=== PATIENT | female | born 1980 | race Caucasian/White ===

== ENCOUNTER 2018-02-27 22:25 | Emergency (ER) | payer SELFPAY ==
[2018-02-27] MEDS ORDERED: ASPIRIN 81 MG TABLET, CHEWABLE PO ONE (22:56)
--- NOTE | 2018-02-27 22:57 | ER Document Report ---
ED Medical Screen (RME) - General Chief Complaint: Chest Pain Stated Complaint: SHORTNESS OF BREATH Time Seen by Provider: 02/27/18 22:56 Notes: Patient is a 37-year-old female presents emergency department with a chief complaint of chest pain, shortness of breath for the past 6-7 months. Patient does not have a primary care doctor that she follows with. She has been told once before that this was heartburn. She describes her pain as a pressure that is not exertional with sharp stabbing qualities. She denies any past medical history significant for diabetes, hypertension, hyperlipidemia, PE or DVT. Patient is a current tobacco user and has a Mirena in place for control. TRAVEL OUTSIDE OF THE [place] IN LAST 30 DAYS: No - Related Data Allergies/Adverse Reactions: Penicillins Allergy (Verified 02/27/18 22:29) Physical Exam - Vital signs Vitals: Temp Pulse Resp BP Pulse Ox 97.9 F 108 H 20 151/108 H 94 02/27/18 22:40 02/27/18 22:40 02/27/18 22:40 02/27/18 22:40 02/27/18 22:40 - Notes Notes: PHYSICAL EXAM GENERAL: Alert, interacts well. HEAD: Normocephalic, atraumatic. NECK: Full range of motion. Supple. Trachea midline. LUNGS: Clear to auscultation bilaterally, no wheezes, rales, or rhonchi. No respiratory distress. HEART: Regular rate and rhythm. No murmurs, gallops, or rubs. NEUROLOGICAL: Alert and oriented x4. Normal speech. PSYCH: Normal affect, normal mood. SKIN: Warm, dry, normal turgor. No rashes or lesions noted. Course - Vital Signs Vital signs: Temp Pulse Resp BP Pulse Ox 97.9 F 108 H 20 151/108 H 94 02/27/18 22:40 02/27/18 22:40 02/27/18 22:40 02/27/18 22:40 02/27/18 22:40
[2018-02-27 23:27] LABS: ABSOLUTE BASOPHILS # (AUTO) 0.2 10^3/uL (0.0-0.2); ABSOLUTE EOSINOPHILS # (AUTO) 0.3 10^3/uL (0.0-0.6); ABSOLUTE LYMPHOCYTES (AUTO) 3.7 10^3/uL (0.5-4.7); ABSOLUTE MONOCYTES (AUTO) 0.7 10^3/uL (0.1-1.4); EOSINOPHILS % (AUTO) 3.5 % (0-6); HEMATOCRIT 42.2 % (36.0-47.0); HEMOGLOBIN 14.8 g/dL (12.0-15.5); LYMPHOCYTES % (AUTO) 41.8 % (13-45); MEAN CORPUSCULAR HEMOGLOBIN 35.9 pg (27.0-33.4); MEAN CORPUSCULAR VOLUME 103 fl (80-97); MONOCYTES % (AUTO) 7.7 % (3-13); PLATELET COUNT 202 10^3/uL (150-450); RED BLOOD COUNT 4.12 10^6/uL (3.72-5.28); TOTAL CELLS COUNTED % (AUTO) 100 %; WHITE BLOOD COUNT 8.9 10^3/uL (4.0-10.5)
[2018-02-27 23:42] LABS: ALANINE AMINOTRANSFERASE 167 U/L (9-52); ALBUMIN 4.9 g/dL (3.5-5.0); ALKALINE PHOSPHATASE 93 U/L (38-126); ANION GAP 18 (5-19); ASPARTATE AMINO TRANSFERASE 200 U/L (14-36); BILIRUBIN,DIRECT 0.5 mg/dL (0.0-0.4); BILIRUBIN,TOTAL 0.6 mg/dL (0.2-1.3); BLOOD UREA NITROGEN 6 mg/dL (7-20); CALCIUM 9.5 mg/dL (8.4-10.2); CARBON DIOXIDE 29 mmol/L (22-30); CHLORIDE 104 mmol/L (98-107); CREATINE KINASE 93 U/L (30-135); GLUCOSE 124 mg/dL (75-110); POTASSIUM 3.5 mmol/L (3.6-5.0); TOTAL PROTEIN 8.7 g/dL (6.3-8.2)
[2018-02-27 23:53] LABS: TROPONIN I < 0.012 ng/mL
--- NOTE | 2018-02-28 03:43 | RADIOLOGY REPORT (SQ) ---
EXAM DESCRIPTION: CT ABD/PELVIS WITH IV ONLY CLINICAL HISTORY: 37 years Female, abdominal pain with vomiting, elevated LFT's COMPARISON: None. TECHNIQUE: IV contrast. Coronal and sagittal reformat. This exam was performed according to our departmental dose-optimization program, which includes automated exposure control, adjustment of the mA and/or kV according to patient size and/or use of iterative reconstruction technique. FINDINGS: Moderate diffuse bowel wall thickening of the left and sigmoid colon and discontinuous mild bowel wall thickening of the mid and distal transverse colon. Prominence of the distal ileal bowel wall. No evidence of appendicitis; appendix not definitively discerned. Adequate appearing IUD. Inferior thorax, liver, gallbladder, pancreas, spleen, adrenals, renal system, gastrointestinal tract, pelvic organs, lymphatics, vasculature, and musculoskeleton appear otherwise unremarkable. IMPRESSION: Moderate colitis pattern.
--- NOTE | 2018-02-28 04:00 | ER Document Report ---
ED General - General Chief Complaint: Chest Pain Stated Complaint: SHORTNESS OF BREATH Time Seen by Provider: 02/27/18 22:56 Notes: Patient is a 37-year-old female who presents emergency department with chief complaint of chest pain, vomiting for the past 6-7 months. Patient describes the pain as a sharp stabbing pain that is fleeting. She states it is not associated with any specific movements, exertion. She denies any associated cough. Admits to intermittent shortness of breath. States that these symptoms usually resolve on their own. She admits to vomiting on a regular basis for the past 6-7 months as well. She states it is normally when she wakes up in the morning and after certain meals. She denies any significant abdominal pain , change in her bowel movements. Patient does not follow with a primary care provider. Patient is a current tobacco user. Admits to approximately 4-8 drinks per week. TRAVEL OUTSIDE OF THE [place] IN LAST 30 DAYS: No - Related Data Allergies/Adverse Reactions: Penicillins Allergy (Verified 02/27/18 22:29) Past Medical History - Social History Smoking Status: Never Smoker Chew tobacco use (# tins/day): No Drug Abuse: None Family History: Reviewed & Not Pertinent Patient has suicidal ideation: No Patient has homicidal ideation: No Renal/ Medical History: Denies: Hx Peritoneal Dialysis Review of Systems - Review of Systems Notes: REVIEW OF SYSTEMS: CONSTITUTIONAL : Denies fever, chills, or sweats. Denies recent illness. EENT: Denies eye, ear, throat, or mouth pain or symptoms. Denies nasal or sinus congestion or discharge. Denies throat, tongue, or mouth swelling or difficulty swallowing. CARDIOVASCULAR: Admits to chest pain, intermittent palpitations or racing or irregular heart beat. Denies ankle edema. RESPIRATORY: Denies cough, cold, or chest congestion. Denies shortness of breath, difficulty breathing, or wheezing. GASTROINTESTINAL: Admits to vomiting without significant nausea. Denies abdominal pain or distention. Denies blood in vomitus, stools, or per rectum. Denies black, tarry stools. Denies constipation. GENITOURINARY: Denies difficulty urinating, painful urination, burning, frequency, blood in urine, or discharge. MUSCULOSKELETAL: Denies any muscle spasms, difficulty walking, extremity pain SKIN: Denies rash, lesions or sores. HEMATOLOGIC : Denies easy bruising or bleeding. LYMPHATIC: Denies swollen, enlarged glands. NEUROLOGICAL: Denies confusion or altered mental status. Denies passing out or loss of consciousness. Denies dizziness or lightheadedness. Denies headache. Denies weakness or paralysis or loss of use of either side. Denies problems with gait or speech. Denies sensory loss, numbness, or tingling. Denies seizures. PSYCHIATRIC: Denies anxiety or stress. Denies depression, suicidal ideation, or homicidal ideation. ALL OTHER SYSTEMS REVIEWED AND NEGATIVE. Dictation was performed using [employer] voice recognition software Physical Exam - Vital signs Vitals: Temp Pulse Resp BP Pulse Ox 97.9 F 108 H 20 151/108 H 94 02/27/18 22:40 02/27/18 22:40 02/27/18 22:40 02/27/18 22:40 02/27/18 22:40 - Notes Notes: PHYSICAL EXAM GENERAL: Alert, interacts well. HEAD: Normocephalic, atraumatic. EYES: Pupils equal, round, and reactive to light. Extraocular movements intact. ENT: Oral mucosa moist, tongue midline. NECK: Full range of motion. Supple. Trachea midline. LUNGS: Clear to auscultation bilaterally, no wheezes, rales, or rhonchi. No respiratory distress. HEART: Regular rate and rhythm. No murmurs, gallops, or rubs. ABDOMEN: Soft, nondistended, nontender. No guarding, rebound, or rigidity.. Bowel sounds present in all 4 quadrants. EXTREMITIES: Moves all 4 extremities spontaneously. No edema, radial and dorsalis pedis pulses 2/4 bilaterally. No cyanosis. NEUROLOGICAL: Alert and oriented x4. Normal speech. PSYCH: Normal affect, normal mood. SKIN: Warm, dry, normal turgor. No rashes or lesions noted. Course - Re-evaluation Re-evalutation: 02/28/18 03:58 Patient is a 37-year-old female presents emergency department with a chief complaint of unspecified chest pain and vomiting. CBC stable without evidence of leukocytosis or anemia. Chemistry is evidence of elevated ALT and AST without evidence of elevation in bilirubins. Lipase also mildly elevated at 300s. CT abdomen and pelvis was ordered given painless elevation in LFTs and lipase without any evidence of acute abdominal process. Regarding her chest pain, low clinical suspicion for ACS given clinical history, exam, EKG without ST elevations or depressions, and negative initial troponin. HEART score less than or equal to 3. PE also seems unlikely given clinical history, absence of tachycardia or dyspnea. Well's score of 0. CXR without evidence of pneumothorax or pneumonia. No widened mediastinum. Aortic dissection also seems unlikely given history, symmetric pulses, CXR, and vitals. At this time will discharge with return precautions and follow-up recommendations. Verbal discharge instructions given a the bedside and opportunity for questions given. Medication warnings reviewed. Patient is in agreement with this plan and has verbalized understanding of return precautions and the need for primary care follow-up in the next 24-72 hours. - Vital Signs Vital signs: Temp Pulse Resp BP Pulse Ox 97.9 F 108 H 21 H 146/105 H 100 02/27/18 22:40 02/27/18 22:40 02/28/18 04:00 02/28/18 03:31 02/28/18 04:00 - Laboratory Result Diagrams: 02/27/18 23:00 02/27/18 23:00 Laboratory results interpreted by me: 02/27/18 02/27/18 02/27/18 23:00 23:00 23:00 MCV 103 H MCH 35.9 H Sodium 151.0 H Potassium 3.5 L BUN 6 L Glucose 124 H Direct Bilirubin 0.5 H AST 200 H ALT 167 H Total Protein 8.7 H Lipase 354.7 H - Diagnostic Test Radiology reviewed: Image reviewed, Reports reviewed - EKG Interpretation by Me EKG shows normal: Sinus rhythm Rate: Normal Rhythm: NSR When compared to previous EKG there are: Previous EKG unavailable Discharge - Discharge Clinical Impression: Chest pain Qualifiers: Chest pain type: unspecified Qualified Code(s): R07.9 - Chest pain, unspecified Vomiting Qualifiers: Vomiting type: unspecified Condition: Good Disposition: HOME, SELF-CARE Instructions: Liver Function Abnormality ([facility]) Additional Instructions: Please follow up with the land economist for elevated liver function tests CHEST PAIN OF UNCLEAR CAUSE: The exact cause of your chest pain isn't clear. Fortunately, there is no evidence of a dangerous medical condition. Further testing may be required to find the source of the pain. Most often, we find that this pain is coming from the chest wall -- the muscles or rib joints in the chest. But chest pain can come from the lung and lung lining, the esophagus, the heart valves or heart lining, and even the stomach or gallbladder. Rest. Eat lightly until the pain is gone. We may prescribe medicine for pain and inflammation. You should call the physician immediately if the pain radiates to the shoulder, jaw or arms; if you start to run a fever or develop a cough; or if you develop shortness of breath, or other new or alarming symptoms. NORMAL EXAM AND WORKUP: At this time, your examination and workup show no significant abnormality. No significant abnormal physical findings were noted. All laboratory, EKG, and imaging (x-ray, CT scans, ultrasound) studies that were ordered show no significant abnormality. Although your examination and all studies that were ordered showed no significant abnormal finding, there are no examinations and no studies that are 100% accurate. There is always the possibility that some abnormality could exist and not be detected with physical examination or within the limits and capabilities of laboratory and other studies. You should return or follow up as you were instructed on your visit today for further evaluation if your symptoms do not resolve. FOLLOW-UP CARE: If you have been referred to a physician for follow-up care, call the physician s office for an appointment as you were instructed or within the next two days. If you experience worsening or a significant change in your symptoms, notify the physician immediately or return to the Emergency Department at any time for re-evaluation. Referrals: BHARGAVI GARNETT MD [ACTIVE STAFF] - Follow up as needed ANUPAM CAMACHO MD [ACTIVE STAFF] - Follow up in 1 week
[2018-02-28 04:02] VITALS: BP 146/105
--- NOTE | 2018-02-28 04:44 | RADIOLOGY REPORT (SQ) ---
EXAM DESCRIPTION: CHEST SINGLE VIEW CLINICAL HISTORY: 37 years Female, chest pain, SOB for months COMPARISON: None. NUMBER OF VIEWS/TECHNIQUE: 1/AP FINDINGS: Adequate lung volume, clear parenchyma, normal cardiac silhouette, and intact bony thorax. IMPRESSION: No acute cardiopulmonary findings.
--- NOTE | 2018-02-28 07:51 | EKG REPORT ---
SEVERITY:- BORDERLINE ECG - SINUS TACHYCARDIA NONSPECIFIC ST-T CHANGES- INFERIOR LEADS : Confirmed by: Chau Dickinson MD 28-Feb-2018 07:50:31
[2018-03-01 08:42] LABS: HEPATITIS A AB IGM Negative (Negative); HEPATITIS B CORE AB IGM Negative (Negative); HEPATITS B SURFACE ANTIGEN Negative (Negative)
[2018-03-01 08:49] LABS: HEPATITIS C VIRUS ANTIBODY <0.1 s/co ratio (0.0-0.9)
== END 2018-02-28 04:26 | disposition home or self-care (01) ==
LOC: ER 22:25
DX: R07.9 Chest pain, unspecified (principal); R11.11 Vomiting without nausea; R06.02 Shortness of breath; R74.0 Nonspecific elevation of levels of transaminase and lactic acid dehydrogenase [LDH]; R74.8 Abnormal levels of other serum enzymes; Z72.0 Tobacco use
CPT/HCPCS: 36415; 71045; 74177; 80053; 80074; 82550; 82553; 83690; 84484; 85025; 85379; 93005; 93010; 99285

== ENCOUNTER 2019-08-15 07:16 | Emergency (ER) | payer SELFPAY ==
[2019-08-15] MEDS ORDERED: IBUPROFEN 800 MG TABLET PO ONE (08:23)
--- NOTE | 2019-08-15 08:28 | ER Document Report ---
ED General - General Chief Complaint: Headache Stated Complaint: HEADACHE,THROAT SWELLING Time Seen by Provider: 08/15/19 08:11 Mode of Arrival: Ambulatory Information source: Patient Notes: This 39-year-old female with history of seizures presents emergency department with complaints of headache for the past 3 to 4 days right ear clogged the past 3 days and sore throat that started yesterday. Reports it hurts to swallow feels like her throat is swollen. Denies fever vomiting diarrhea. Patient reports she has had anaphylactic reaction to penicillin so she knows how it feels where throat is closing and it feels like when her throat is closing. She does admit that she is eating drinking without problems. Patient reports she is taking Goody powders without relief of symptoms. TRAVEL OUTSIDE OF THE [place] IN LAST 30 DAYS: No - Related Data Allergies/Adverse Reactions: Penicillins Allergy (Verified 08/15/19 07:40) Past Medical History - General Information source: Patient Last Menstrual Period: IUD - Social History Smoking Status: Current Every Day Smoker Cigarette use (# per day): Yes Chew tobacco use (# tins/day): No Frequency of alcohol use: Occasional Drug Abuse: None Family History: Reviewed & Not Pertinent Patient has suicidal ideation: No Patient has homicidal ideation: No Neurological Medical History: Reports: Hx Seizures Renal/ Medical History: Denies: Hx Peritoneal Dialysis Past Surgical History: Reports: Hx Gynecologic Surgery Review of Systems - Review of Systems Notes: Review HPI for review of systems., All other systems negative Physical Exam - Vital signs Vitals: Temp Pulse Resp BP Pulse Ox 97.4 F 85 18 162/96 H 99 08/15/19 07:32 08/15/19 07:32 08/15/19 07:32 08/15/19 07:32 08/15/19 07:32 - General General appearance: Appears well, Alert In distress: None - HEENT Head: Normocephalic, Atraumatic Eyes: Normal Conjunctiva: Normal Pupils: PERRL Ears: Normal External canal: Cerumen impaction Pharynx: Normal, Erythema - Good airway clear voice opens mouth wide no trismus. No: Peritonsillar abscess, Retropharyngeal abscess, Tonsillar hypertrophy, Uvular edema, Potential airway comprom. Neck: Normal, Supple. No: Lymphadenopathy - Respiratory Respiratory status: No respiratory distress Chest status: Nontender Breath sounds: Normal Chest palpation: Normal - Cardiovascular Rhythm: Regular Heart sounds: Normal auscultation Murmur: No - Abdominal Inspection: Normal Distension: No distension Bowel sounds: Normal Tenderness: Nontender - Extremities General upper extremity: Normal ROM, Normal strength General lower extremity: Normal ROM, Normal strength - Neurological Neuro grossly intact: Yes Cognition: Normal Orientation: AAOx4 Hendricks Coma Scale Eye Opening: Spontaneous Hendricks Coma Scale Verbal: Oriented Hendricks Coma Scale Motor: Obeys Commands Hendricks Coma Scale Total: 15 Speech: Normal - Psychological Associated symptoms: Normal affect, Normal mood - Skin Skin Temperature: Warm Skin Moisture: Dry Skin Color: Normal Course - Re-evaluation Re-evalutation: 08/15/19 09:09 This 39-year-old female with history of seizures presents emergency department with headache for the last 3 to 4 days a clogged ear for the past 3 days. She also reports it hurts to swallow. She also reports that she is having trouble swallowing and knows what that feels like because she is had a anaphylactic reaction to penicillin and it feels like that. Patient is speaking in a clear voice no distress good airway. Patient reports she is eating drinking without problems. Strep test negative, right ear irrigated by Vannesa PCT large amount of cerumen obtained, patient reports her ear feels 100% better and she can hear. 08/15/19 09:50 neg strep, enlarged palatine tonsils no peritonsillar abscess. FULTON decreased, pt looks great, smiles easily no distress. Throat culture pending. Steroid IM, Pt will be discharged home, instructed to return for worsening symptoms, trouble swallowing, concerns Soft Tissue Neck CT 08/15/19 08:22 IMPRESSION: 1. Mildly enlarged bilateral palatine tonsils with asymmetric soft tissue fullness at the right base of tongue and inferior palatini tonsil. No discrete tonsillar or peritonsillar abscess. Findings may represent sequelae of tonsillitis, less likely mucosal lesion. Correlation with patient's symptoms and direct visualization could be considered for further characterization. 2. No lymphadenopathy or other evidence of acute process. - Vital Signs Vital signs: Temp Pulse Resp BP Pulse Ox 97.9 F 74 16 147/93 H 99 08/15/19 10:10 08/15/19 10:10 08/15/19 10:10 08/15/19 10:10 08/15/19 07:32 - Diagnostic Test Radiology reviewed: Image reviewed, Reports reviewed Discharge - Discharge Clinical Impression: Sore throat, Headache, Right ear impacted cerumen Condition: Stable Disposition: HOME, SELF-CARE Instructions: Use of Diphenhydramine, Sore Throat ([facility]), Steroid Medication Injection Additional Instructions: *You have been evaluated for a Headache, impacted ear with irrigation, sore throat *Your strep test was negative a throat culture is pending. If you need antibiotics you will be contacted within the next 3 days. *Take ibuprofen as indicated for your headache *Gargle with warm salt water and utilize throat lozenges for comfort *Do not let anyone drink/eat after you *Good hand washing *Follow-up with a primary care provider within 1 week for recheck *Return to ED for worsening condition change, needs Monitor your blood pressure. Your blood pressure was elevated today. This may be because you were anxious, in pain or because you need medication. It is important to follow up with your primary care provider for full evaluation. Forms: Elevated Blood Pressure, Smoking Cessation Education
--- NOTE | 2019-08-15 09:29 | RADIOLOGY REPORT (SQ) ---
EXAM DESCRIPTION: CT SOFT TISSUE NECK WITH COMPLETED DATE/TIME: 08/15/2019 9:05 am REASON FOR STUDY: feels like throat is closing COMPARISON: None. TECHNIQUE: Post IV contrasted scanning from skull base through lung apices with review of bone, soft tissue and lung windows. Reconstructed coronal and sagittal MPR images reviewed. All images stored on PACS. All CT scanners at this facility use dose modulation, iterative reconstruction, and/or weight based d osing when appropriate to reduce radiation dose to as low as reasonably achievable (ALARA). [facility]: Dose Right [facility]: CareDose [facility]: Dose Right [facility]: Teradose 4D [facility]: [employer] Software CONTRAST TYPE AND DOSE: 75mL Omnipaque 350 RENAL FUNCTION: None required. The patient is less than 50 years old. RADIATION DOSE: CT Rad equipment meets quality standard of care and radiation dose reduction techniq ues were employed. CTDIvol: 15.4 mGy. DLP: 487 mGy-cm. mGy. LIMITATIONS: None. FINDINGS: SKULL BASE: Intact. MAJOR SALIVARY GLANDS: No solid or cystic masses. No inflammatory changes. LYMPHADENOPATHY: No adenopathy. MUCOSAL MASSES OR ASYMMETRY: Mildly enlarged bilateral palatine tonsils with mild asymmetry soft tiss ue fullness at the right base of tongue and inferior palatini tonsil measuring approximately 11 x 9 m m (series 3, image 37). No evidence of discrete focal tonsil or peritonsillar abscess. Remaining mu cosal space are symmetric LARYNX/CORDS: No abnormal findings. VASCULAR STRUCTURES: The major vessels are patent. LUNG APICES: Clear. BONES: Intact. THYROID: Normal size. No masses. PARANASAL SINUSES: Clear. OTHER: No other significant finding. IMPRESSION: 1. Mildly enlarged bilateral palatine tonsils with asymmetric soft tissue fullness at t he right base of tongue and inferior palatini tonsil. No discrete tonsillar or peritonsillar abscess . Findings may represent sequelae of tonsillitis, less likely mucosal lesion. Correlation with ananth ent's symptoms and direct visualization could be considered for further characterization. 2. No lymphadenopathy or other evidence of acute process. TECHNICAL DOCUMENTATION: JOB ID: [id number] RS [id number]: Final reports with documentation of one or more dose reduction techniques (e.g., Automate d exposure control, adjustment of the mA and/or kV according to patient size, use of iterative recons truction technique) 2010 [id number]- All Rights Reserved Reading location - IP/workstation name: [email or web address]
[2019-08-15] MEDS ORDERED: DEXAMETHASONE SOD PHOSPHATE INJ 4 MG/1 ML VIAL IM ONE (09:55)
[2019-08-15 10:11] VITALS: BP 147/93
== END 2019-08-15 10:14 | disposition home or self-care (01) ==
LOC: ER 07:16
DX: J02.9 Acute pharyngitis, unspecified (principal); R51 Headache; H61.21 Impacted cerumen, right ear; F17.210 Nicotine dependence, cigarettes, uncomplicated; Z88.0 Allergy status to penicillin
CPT/HCPCS: 87070; 87880; 70491; J1100; 96374; 99284

== ENCOUNTER → 2020-01-07 | Outpatient (CLI) | payer OTHER ==
--- NOTE | 2020-01-08 17:51 | NEURO WORKBENCH EEG REPORT ---
EEG Report Patient: Qing Rush ID: [id number] Referring Doctor: Kuldeep Sharpe MD DOS: 01/07/2020 Medications: Keppra History This is a 39 year old right handed woman with a history of idiopathic generalized epilepsy. Her first seizure was 6 months ago, last seizure one month ago. This EEG was requested for seizures. EEG Interpretation This EEG was recorded in the awake and drowsy states. The awake EEG is characterized by a moderately-organized background without a well-developed but briefly noted posterior dominant rhythm of 9.5Hz. The remained of the background consisted of a mix of alpha with low amplitude beta activity. Drowsiness was characterized by slowing of the background rhythms. Photic stimulation resulted in a good driving response. Hyperventilation resulted in minimal generalized background slowing. There were sharply contoured waveforms in the left>right temporal regions, not definitively epileptiform. Some of these occurred in runs that could be consistent with wicket spikes. The EKG showed a regular rhythm. EEG Classification Sharply contoured waveforms, L>R temporal EEG Impression This EEG is predominantly normal; however there are sharply contoured waveforms in the temporal regions that are of uncertain clinical significance. Of note, Keppra may potentially suppress interictal epileptiform activity. Repeat EEG as clinically indicated. INTERPRETING NEUROLOGIST: Mary Enrique MD, FRCPC Board Certified in Neurology, with special qualification in Child Neurology, and in Clinical Neurophysiology [facility]
== END ==
LOC: NEURO 12:53
PROVIDERS: ATTEND Pediatrics
DX: G40.309 Generalized idiopathic epilepsy and epileptic syndromes, not intractable, without status epilepticus (principal)
CPT/HCPCS: 95819

== ENCOUNTER → 2020-07-25 | Outpatient (CLI) | payer OTHER ==
--- NOTE | 2020-07-25 21:00 | EKG REPORT ---
SEVERITY:- NORMAL ECG - SINUS RHYTHM : Confirmed by: Desmond Dong 25-Jul-2020 21:00:02
== END ==
LOC: NEURO 12:03
PROVIDERS: ATTEND Pediatrics
DX: E87.6 Hypokalemia (principal); G40.309 Generalized idiopathic epilepsy and epileptic syndromes, not intractable, without status epilepticus; R41.840 Attention and concentration deficit
CPT/HCPCS: 93005; 93010